=== PATIENT | male | born 1980 | race Hispanic/Latino ===

== ENCOUNTER 2018-11-04 10:44 | Inpatient (IN) | payer BC ==
[2018-11-04 10:52] VITALS: BMI 23.7
[2018-11-04 10:54] VITALS: O2SAT 96
[2018-11-04 12:25] LABS: BASO % 0.4 % (0.0-2.0); EOS % 0.3 % (0.0-4.0); HEMOGLOBIN 14.7 g/dL (12.0-18.0); LYMPH # 1.7 K/uL (1.0-4.3); LYMPH % 21.1 % (20.0-40.0); MEAN CELL VOLUME 94.2 fL (80.0-94.0); MEAN CORPUSCULAR HEMOGLOBIN 32.8 pg (27.0-31.0); MEAN CORPUSCULAR HGB CONC 34.8 g/dL (33.0-37.0); MONO # 0.3 K/uL (0.0-0.8); MONO % 4.2 % (0.0-10.0); NEUT # 5.9 K/uL (1.8-7.0); RBC 4.49 Mil/uL (4.40-5.90); RED CELL DISTRIBUTION WIDTH 13.3 % (11.5-14.5)
[2018-11-04 12:30] LABS: URINE BACTERIA RARE (<OCC); URINE BILIRUBIN NEGATIVE (NEGATIVE); URINE BLOOD NEGATIVE (NEGATIVE); URINE CLARITY Clear (Clear); URINE COLOR Amber (YELLOW); URINE GLUCOSE (UA) NORMAL (Normal); URINE LEUKOCYTE ESTERASE TRACE Leu/uL (Negative); URINE PROTEIN NEGATIVE (NEGATIVE)
[2018-11-04 12:37] LABS: ALB/GLOB RATIO 1.7 (1.0-2.1); ALBUMIN 4.4 g/dL (3.5-5.0); ALT/SGPT 12 U/L (21-72); AST/SGOT 21 U/L (17-59); BLOOD UREA NITROGEN 12 mg/dL (9-20); CALCIUM 9.4 mg/dl (8.6-10.4); GFR NON-AFRICAN AMERICAN > 60
[2018-11-04 13:22] LABS: BARBITURATES, UR NEGATIVE (NEGATIVE); BENZODIAZEPINES, UR NEGATIVE (NEGATIVE); OPIATES, UR NEGATIVE (NEGATIVE); PHENCYCLIDINE, UR NEGATIVE (NEGATIVE)
--- NOTE | 2018-11-04 13:31 | C.PDOC ---
History Of Present Illness Patient is a 38 year old male who presents to the ED c/o suicidal ideation s/p recent "breakup situation". Patient denies any HI, hallucinations, suicidal plan, or other medical complaints. Time Seen by Provider: 11/04/18 11:41 Chief Complaint (Nursing): Psychiatric Evaluation History Per: Patient History/Exam Limitations: no limitations Onset/Duration Of Symptoms: Days Suicide/Self Injury Attempted (Context): None Associated Symptoms: Suicidal Thoughts. denies: Suicidal Plan Recent travel outside of the [place]: No Additional History Per: Patient Past Medical History Reviewed: Historical Data, Nursing Documentation, Vital Signs Vital Signs: Last Vital Signs Temp 80 F L 11/04/18 10:52 Pulse 81 11/04/18 10:52 Resp 18 11/04/18 10:52 BP 150/74 11/04/18 10:52 Pulse Ox 96 11/04/18 10:52 Primary Care Provider: FAMILY PROVIDER,NO - Medical History PMH: No Chronic Diseases Denies: Diabetes (Patient denied.), Hepatitis (Patient denied.), HIV (Patient denied.), HTN (Patient denied.), Seizures (Patient denied.), Sexually Transmitted Disease (Patient denied.) Surgical History: No Surg Hx Family History: States: No Known Family Hx - Social History Hx Alcohol Use: No Hx Substance Use: No - Immunization History Hx Tetanus Toxoid Vaccination: No Hx Influenza Vaccination: No Hx Pneumococcal Vaccination: No Review Of Systems Except As Marked, All Systems Reviewed And Found Negative. Constitutional: Negative for: Fever, Chills Cardiovascular: Negative for: Chest Pain Respiratory: Negative for: Shortness of Breath Gastrointestinal: Negative for: Abdominal Pain Psych: Positive for: Suicidal ideation. Negative for: Other (HI, hallucinations, suicidal plan) Physical Exam - Physical Exam Appears: Non-toxic, No Acute Distress Skin: Warm, Dry, No Rash Head: Atraumatic, Normacephalic Eye(s): bilateral: Normal Inspection, PERRL, EOMI Nose: Normal Oral Mucosa: Moist Throat: No Erythema, No Exudate Neck: Normal ROM, Supple Chest: Symmetrical, No Deformity Cardiovascular: Rhythm Regular, No Murmur Respiratory: Normal Breath Sounds, No Rales, No Rhonchi, No Wheezing Gastrointestinal/Abdominal: Bowel Sounds (active), Soft, No Tenderness Extremity: Normal ROM, No Swelling Neurological/Psych: Oriented x3, Normal Speech, Normal Motor Gait: Steady ED Course And Treatment - Laboratory Results Result Diagrams: 11/04/18 12:18 11/04/18 12:18 Lab Results: Total Bilirubin 0.7 mg/dL (0.2-1.3) 11/04/18 12:18 AST 21 U/L (17-59) 11/04/18 12:18 ALT 12 U/L (21-72) L 11/04/18 12:18 Alkaline Phosphatase 76 U/L (38-126) 11/04/18 12:18 Total Protein 7.1 g/dL (6.3-8.3) 11/04/18 12:18 Albumin 4.4 g/dL (3.5-5.0) 11/04/18 12:18 Globulin 2.7 gm/dL (2.2-3.9) 11/04/18 12:18 Albumin/Globulin Ratio 1.7 (1.0-2.1) 11/04/18 12:18 Urine Color Dora (YELLOW) 11/04/18 12:18 Urine Clarity Clear (Clear) 11/04/18 12:18 Urine pH 5.0 (5.0-8.0) 11/04/18 12:18 Ur Specific [place] 1.027 (1.003-1.030) 11/04/18 12:18 Urine Protein Negative mg/dL (NEGATIVE) 11/04/18 12:18 Urine Glucose (UA) Normal mg/dL (Normal) 11/04/18 12:18 Urine Ketones Negative mg/dL (NEGATIVE) 11/04/18 12:18 Urine Blood Negative (NEGATIVE) 11/04/18 12:18 Urine Nitrate Negative (NEGATIVE) 11/04/18 12:18 Urine Bilirubin Negative (NEGATIVE) 11/04/18 12:18 Urine Urobilinogen 4.0 mg/dL (0.2-1.0) 11/04/18 12:18 Ur Leukocyte Esterase Trace Edith/uL (Negative) 11/04/18 12:18 Urine WBC (Auto) 1 /hpf (0-5) 11/04/18 12:18 Urine RBC (Auto) 3 /hpf (0-3) 11/04/18 12:18 Urine Bacteria Rare (<OCC) 11/04/18 12:18 O2 Sat by Pulse Oximetry: 96 (on RA) Pulse Ox Interpretation: Normal Medical Decision Making Medical Decision Making: Plan: Labs UA The patient is medically cleared for psych admission Disposition - Disposition Disposition: HOSPITALIZED Disposition Time: 13:48 Condition: STABLE Forms: [facility] (Martiniquais) - Clinical Impression Clinical Impression: Moderate major depression, single episode - PA / GEARCASE ASSEMBLER / Resident Statement MD/DO has reviewed & agrees with the documentation as recorded. - Scribe Statement The provider has reviewed the documentation as recorded by the Johnnaibkaty Joseph All medical record entries made by the Johnnaibkaty were at my direction and personally dictated by me. I have reviewed the chart and agree that the record accurately reflects my personal performance of the history, physical exam, medical decision making, and the department course for this patient. I have also personally directed, reviewed, and agree with the discharge instructions and disposition.
--- NOTE | 2018-11-04 14:14 | PCM.BM ---
<Amy Davis - Last Filed: 11/04/18 14:12> Treatment Plan Problems - Problems identified on initial assessmt Altered Sleep Patterns Date Initiated: 11/04/18 Time Initiated: 14:13 Assessment reference: NA Status: Active Medication Nonadherence Date Initiated: 11/04/18 Time Initiated: 14:13 Assessment reference: NA Status: Active Feeling Hopelessness/Helplessness Date Initiated: 11/04/18 Time Initiated: 14:13 Assessment reference: NA Status: Active Treatment assets and liabiliti Patient Assests: adapts well, cooperative, educated, self-reliant, ADL independent, physically healthy, negotiates basic needs, cognitively intact Patient Liabilities: live alone (With mother), financial problems, substance abuse (THC), medical problems (None) - Milieu Protocol Maintain good personal hygiene: daily Encourage regular showers, daily Remind patient to perform daily oral care, daily Assist patient to perform ADL's (Self care) Conduct patient checks and document Observation sheet: Q15 minutes (safety) Maintain personal safety: every shift Educate patient to report safety concerns to staff, every shift Monitor environment for contraband/sharps Medication safety: Monitor for expected outcome, potential side effects: every shift, Assess barriers to learning: every shift, Assess readiness for medication education: every shift <Abrahan Mcmanus - Last Filed: 11/05/18 14:21> - Diagnosis (1) Moderate major depression, single episode Status: Acute Interventions: 11/05/18 14:22 * Assess/adjust medications daily and /or as needed * See patient on an individual basis 7x/week to assess symptoms of depression * Monitor for side effects & effectiveness of medications * <Rachel Wills - Last Filed: 11/05/18 15:18> Family Contact Family involvement: Family/SO is involved Family contact: Patient agrees to contact, Family has been contacted by patient - Goals for Treatment Patient goals for treatment: "I want to follow-up with my therapist." Discharge/Continuing Care - Education Needs Education Needs: Patient Medication, Patient Diagnosis/Disease Process, Patient Coping Skills, Patient Placement options, Patient Community resources - Discharge Discharge Criteria: Free of Suicidal thoughts, Normal sleep pattern, Ability to care for self, Reduction of target symptoms Discharge to:: Home, With Family - Treatment Team Participation Discussed with Family/SO: No Was Patient/Family/SO present at Treatment Team Meeting: Yes
--- NOTE | 2018-11-05 12:24 | PCM.PSYCH ---
Initial Psychiatric Evaluation - Initial Psychiatric Evaluation Type of Admission: Voluntary Legal Status: Capacity Chief Complaint (in patient's own words): "I am depressed" History of Present Illness and Precipitating Events: Patient is seen twice, his chart is reviewed, case discussed withthe team (twice). Our SW and PES worker spoke to his mother. Patient is a 38 year-old, male, who is single and without children. He recently from his long-term girlfriend, with whom he lived with, so he is currently living with friends in [place]. 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 He comes to [facility] due to suicidal ideations. He states that he has been experiencing depressed mood and thoughts of suicide for the past several weeks, following the break-up with his girlfriend. He came to [facility] yesterday, Nov 04 2018, to seek treatment because his thoughts of suicide became more practical versus emotional. He denies having had a specific plan to kill himself now. He reports anhedonia, depressed mood, decreased appetite and decreased energy, but denies any sleep disturbances. He admits to smoking marijuana on a daily basis. He is also a current every day smoker and smokes up to 1 pack per day. Denies other drugs and alcohol misuse. He denies any previous psychiatric hospitalizations or suicide attempts. He denies any current suicidal ideations but he is also evasive and wants to leave as soon as possible, he says. He denies any paranoid thoughts or hallucinations. He claims he has an appointment with a therapist tomorrow at 2 pm in [facility] but he does not have a psychiatrist yet,. He also does not know whether he will stay around here or move to [facility] or even [place]. Past Psychiatric History: panic attacks, anxiety, depression (all untreated) Family Psych History: Not known Past Medical History: denies Past Surgical History: denies Current Medications: Active Medications Generic Name Dose Route Start Last Admin Trade Name Freq PRN Reason Stop Dose Admin Escitalopram Oxalate 5 mg 11/05/18 12:30 Lexapro PO 11/05/18 12:31 ONCE ONE Escitalopram Oxalate 10 mg 11/06/18 10:00 Lexapro PO DAILY IAN Hydroxyzine HCl 50 mg 11/04/18 17:58 Atarax PO QID PRN Anxiety Nicotine 1 patch 11/04/18 18:00 11/05/18 09:13 Nicoderm Cq TD 1 patch DAILY IAN Administration Trazodone HCl 50 mg 11/04/18 17:56 Desyrel PO HS PRN Insomnia Past Psychiatric History - Past Psychiatric History Previous Treatment History: Intensive Outpatient (he was in psychotherapy previously (brief)) Pertinent Medical Hx (Current Medical&Sleep Prob, Allergies): Allergies Allergy/AdvReac Type Severity Reaction Status Date / Time No Known Allergies Allergy Verified 11/04/18 10:51 No Known Home Med 11/04/18 Review of Systems - Psychiatric Psychiatric: Anhedonia, Anxiety, Change in Appetite, Depression, Difficulty Concentrating, Irritability, Mood Swings, Panic Attacks. absent: Abnormal Sleep Pattern, Hallucinations, Homicidal Ideation, Paranoia, Suicidal Ideation Mental Status Examination - Personal Presentation Personal Presentation: Looks older than stated age - Affect Affect: Constricted - Motor Activity Motor Activity: Calm - Reliability in Providing Information Reliability in Providing Information: Good - Speech Speech: Organized - Mood Mood: Depressed, Anxious - Formal Thought Process Formal Thought Process: No Impairment - Cognitive Functions Orientation: Person, Place, Situation, Time Sensorium: Alert Attention/Concentration: Easily distracted Abstract Thinking: [place] Estimate of Intelligence: Average Judgement: Intact, as evidence by: Insight regarding need for hospitalization Memory: Recent intact, as evidence by: Ability to recall events of the day, Remote intact, as evidenced by: Abilit to recall sig. life events - Risk Risk: Withdrawal, Diminished functioning - Strength & Assets Inventory Strength & Assets Inventory: Cooperative - Limitations Limitations: Other DSM 5 DX - DSM 5 DSM 5 Diagnosis: Major depressive d/o - single, severe, without psychosis Anxiety d/o - unspecified r/o Personality d/o Cannabis use d/o - severe Tobacco use d/o - severe - Recommended/Plan of Treatment Treatment Recommendations and Plan of Treatment: - Lexapro for depression - As needed medications - All risks, benefits and alternatives of the medications were discussed with the patient, and the patient agreed and understood. - CBT and supportive therapy and psychoeducation. - Attend groups and activities. - Teach healthy lifestyle methods, i.e. diet, exercise, meditation. - [place] for smoking cessation - Nicotine patch 42 min Projected ELOS: 2-3 days Prognosis: good w treatment Discharge Plan and Discharge Criteria: Refer to psychiatry and psychotherapy - Smoking Cessation Smoking Cessation Initiated: Yes
[2018-11-06 06:41] VITALS: BP 104/65; PULSE 67; RESP 20; TEMP 98.7
--- NOTE | 2018-11-06 09:41 | PCM.PYCHDC ---
Mental Status Examination - Mental Status Examination Orientation: Person Discharge Summary - Discharge Note Consultations:: List each consultation separately and include: 1. Reason for request. 2. Findings. 3. Follow-up Summary of Hospital Course include:: 1. Description of specific treatment plan utilized for patients during their course of treatmen. 2. Summarize the time- course for resolution of acute symptoms and/or regressed behaviors. 3. Describe issues identified and worked on during hospitalization. 4. Describe medication utilized. 5. Describe medical problems identified and treated. 6. Reassessment of suicide risk Summary of Hospital Course: Patient is seen twice, his chart is reviewed, case discussed withthe team (twice). Our SW and PES worker spoke to his mother. Patient is a 38 year-old, male, who is single and without children. He recently from his long-term girlfriend, with whom he lived with, so he is currently living with friends in [place]. 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 He comes to [facility] due to suicidal ideations. He states that he has been experiencing depressed mood and thoughts of suicide for the past several weeks, following the break-up with his girlfriend. He came to [facility] yesterday, Nov 04 2018, to seek treatment because his thoughts of suicide became more practical versus emotional. He denies having had a specific plan to kill himself now. He reports anhedonia, depressed mood, decreased appetite and decreased energy, but denies any sleep disturbances. He admits to smoking marijuana on a daily basis. He is also a current every day smoker and smokes up to 1 pack per day. Denies other drugs and alcohol misuse. He denies any previous psychiatric hospitalizations or suicide attempts. He denies any current suicidal ideations but he is also evasive and wants to leave as soon as possible, he says. He denies any paranoid thoughts or hallucinations. He claims he has an appointment with a therapist tomorrow at 2 pm in [facility] but he does not have a psychiatrist yet,. He also does not know whether he will stay around here or move to [facility] or even [place]. Past Psychiatric History: panic attacks, anxiety, depression (all untreated) Family Psych History: Not known Past Medical History: denies Past Surgical History: denies He left AMA but rx and appointments given, his mo is contacted. He will go to [facility] - Diagnosis (1) Moderate major depression, single episode Current Visit: Yes Status: Acute - Final Diagnosis (DSM 5) Condition upon Discharge: STABLE Disposition: HOME/ ROUTINE Follow-up Treatment Plan: - Lexapro for depression - As needed medications - All risks, benefits and alternatives of the medications were discussed with the patient, and the patient agreed and understood. - CBT and supportive therapy and psychoeducation. - Attend groups and activities. - Teach healthy lifestyle methods, i.e. diet, exercise, meditation. - [place] for smoking cessation - Nicotine patch 42 min Prescriptions/Medication Reconciliation: Escitalopram [Lexapro] 10 mg PO DAILY #30 tab hydrOXYzine HCl [Atarax] 50 mg PO DAILY PRN #30 tab PRN Reason: Anxiety
== END 2018-11-06 11:51 | disposition home or self-care (01) | DRG 885 ==
LOC: C.ER 10:44 → C.5E 13:51
PROVIDERS: ADMIT Psychiatry & Neurology Psychiatry; ATTEND Psychiatry & Neurology Psychiatry
PROC: GZ56ZZZ Individual Psychotherapy, Supportive (ICD-10-PCS; principal; 2018-11-04)
DX: F32.1 Major depressive disorder, single episode, moderate (principal); R45.851 Suicidal ideations; F12.90 Cannabis use, unspecified, uncomplicated; F17.210 Nicotine dependence, cigarettes, uncomplicated; F41.0 Panic disorder [episodic paroxysmal anxiety]